=== PATIENT | female | born 1975 | race Caucasian/White ===

== ENCOUNTER 2022-09-28 11:04 | Day surgery (SDC) | payer OTHER ==
[2022-09-20 13:11] VITALS: BMI 23.0
[2022-09-28 11:28] VITALS: RESP 18; TEMP 97.3
[2022-09-28] MEDS ORDERED: PROPOFOL 80 ML ONE (12:15)
[2022-09-28 13:06] VITALS: BP 108/69; PULSE 61
== END 2022-09-28 13:10 | disposition home or self-care (01) ==
LOC: FASU-ENDO 11:04
PROVIDERS: ATTEND Internal Medicine Gastroenterology
PROC: 0DJD8ZZ Inspection of Lower Intestinal Tract, Via Natural or Artificial Opening Endoscopic (ICD-10-PCS; principal; 2022-09-28 12:18)
DX: Z12.11 Encounter for screening for malignant neoplasm of colon (principal); K64.0 First degree hemorrhoids
CPT/HCPCS: 81025